=== PATIENT | male | born 1930 | race Hispanic/Latino ===

== ENCOUNTER 2019-03-24 05:09 | Inpatient (IN) | payer MEDICARE, MEDICAID ==
[2019-03-24] MEDS ORDERED: Piperacillin/Tazobactam 3.375 GM VIAL ONE (05:27)
[2019-03-24 06:04] LABS: Bacteria/HPF 4+ HPF (None Seen); Bilirubin Negative (Negative); Blood, Urine 2+ (Negative); Clarity Extra Turbid (Clear); Glucose, Urine (Dipstick) Normal (Negative); Leukocyte 500 Leu/uL (Negative); Nitrite Negative (Negative); Protein, Urine (Dipstick) Greater than 600 mg/dL (Neg-Trace); RBC/HPF Greater than 50 HPF (0-3); Squamous Epithelial None Seen HPF (0-3); Urobilinogen Normal mg/dL (Less than 2); WBC/HPF 21-50 HPF (0-3)
[2019-03-24 06:16] LABS: Calcium Oxalate Crystals 2+ HPF (None Seen); Triple Phosphate Crystal 4+ HPF (None Seen)
[2019-03-24 06:18] LABS: Hemoglobin 9.7 g/dL (14.0-18.0); Mean Corpuscular Hemoglobin 25.4 pg (27.0-31.0); Mean Platelet Volume 9.1 fL (7.4-10.4); Platelet Count 211 thou/uL (130-400); RBC Distribution Width 17.3 % (11.5-14.5); Red Blood Cell (RBC) Count 3.82 mill/uL (4.70-6.10); White Blood Cell (WBC) Count 8.8 thou/uL (4.8-10.8)
[2019-03-24 06:24] LABS: ALT (SGPT) 9 U/L (8-55); AST (SGOT) 10 U/L (5-34); Alkaline Phosphatase 100 U/L (40-150); Anion Gap 18 mmol/L (10-20); BUN (Urea Nitrogen) 49 mg/dL (8.4-25.7); Bilirubin, Total 0.9 mg/dL (0.2-1.2); Calc. Creatinine Clearance 0 mL/min (70-130); Calcium 8.9 mg/dL (7.8-10.44); Carbon Dioxide 19 mmol/L (23-31); Chloride 106 mmol/L (98-107); Estimated GFR-MDRD 64; Globulin 3.7 g/dL (2.4-3.5); Glucose 140 mg/dL (83-110); Protein, Total 6.7 g/dL (5.8-8.1); Sodium 139 mmol/L (136-145)
[2019-03-24] MEDS ORDERED: Ketamine 50 MG/ML (10ML VIAL) ONE (06:25)
[2019-03-24] MEDS ORDERED: Rocuronium Bromide 10 MG/ML (10ML VIAL) ONE (06:26)
[2019-03-24 06:27] LABS: Band 48 % (5-11); Lymphocytes 7 % (21-51); MDiff Complete? YES; Metamyelocyte 1 % (0-0); Neutrophil 44 % (42-75); Platelet Morphology Comment Appears Adequate; Reflex for Review?? NO
[2019-03-24] MEDS ORDERED: fentaNYL Citrate/PF 2,000 MCG in Sodium Chloride 0.9% 60 ML IV SCH (06:53)
[2019-03-24 07:12] LABS: Analyzer IN Cardio ER; Base Excess (BEa) -9.3 mEq/L (-2.0 to +3.0); CO2 Tension 46.2 mmHg (35.0-45.0); Calcium, Ionized 1.08 mmol/L (1.12-1.30); Carboxyhemoglobin (COHb) 0.8 gm% (0.0-3.0); Hemoglobin (Hb) 8.3 g/dL (14.0-18.0); O2 Tension (PaO2) 102.4 mmHg (> 60.0); Potassium - ABG Lab 3.23 mmol/L (3.70-5.30)
[2019-03-24 07:13] LABS: Puncture Site LBA; pH, Arterial 7.21 (7.35-7.45)
--- NOTE | 2019-03-24 07:34 | RAD ---
Frontal radiograph chest: 03/24/2019 6:37 AM COMPARISON: 03/24/2019 5:07 AM HISTORY: Respiratory distress FINDINGS: There is a new endotracheal tube projecting over the tracheal air column, terminating at th e level of the clavicular heads. Nasogastric tube present, distal tip overlying the midline mediastinum. This nasogastric tube should be advanced. There is rounded density in the right suprahilar region which could signify vascular prominence or ma ss density. This is not well assessed on portable chest radiograph. The lungs are hyperinflated with increased linear interstitial density noted. There is linear density in the right lung apex which could signify scar. IMPRESSION: Lines and tubes as detailed above. Recommend advancing the nasogastric tube. Interstitial prominence and pulmonary hyperinflation may signify underlying COPD. Increased density in the right hilar region may be vascular in nature or may represent underlying mas s. PA and lateral imaging of the chest is advised when the patient is able. CODE T
[2019-03-24] MEDS ORDERED: Ondansetron PF 4 MG/2 ML Vial IVP PRN (08:07)
[2019-03-24] MEDS ORDERED: Sodium Chloride 0.9% 1,000 ML IV SCH (08:07)
[2019-03-24] MEDS ORDERED: Acetaminophen 650 MG Suppository PR PRN (08:07)
--- NOTE | 2019-03-24 08:43 | CT ---
CT BRAIN WITHOUT CONTRAST: Date: 03/24/19 INDICATION: Altered mental status and confusion. COMPARISON: None. FINDINGS: There is moderate generalized cerebral and cerebellar atrophy. There is prominence of the extra-axial space overlying the cerebral convexity, likely related to chronic subdural hygromas. There are bur h oles present within the vertex of the parietal and frontal skull bilaterally. More subacute chronic s ubdural hematoma overlies the right parietal convexity measuring 5.3 mm. The septum pellucidum and th ird ventricle are midline. Basilar cisterns are patent. There is moderate chronic small vessel white matter ischemic change. There are bilateral mastoid effusions. Paranasal sinuses are clear. IMPRESSION: 1. Bilateral chronic appearing subdural hygromas overlying the cerebral convexities with a more suba cute subdural component overlying the right parietal convexity. No midline shift is grossly evident. 2. Prominent generalized cerebral and cerebellar atrophy. 3. Moderate chronic small vessel white matter ischemic change. 4. Bilateral mastoid effusions. Findings called to Dr. Price at 0613 hours on 03/24/19. CODE CR. POS: MANUEL
[2019-03-24] MEDS ORDERED: Enoxaparin Sodium 40 MG/0.4 ML SYRINGE SC SCH (09:00)
[2019-03-24] MEDS: Famotidine/PF 20 mg/2ml Vial SLOW IVP SCH ×2 (09:41→19:57)
[2019-03-24] MEDS: Cefepime 2 GM in Sodium Chloride 0.9% 100 ML IVPB SCH ×2 (09:48→19:57)
--- NOTE | 2019-03-24 10:01 | RAD ---
PORTABLE CHEST 1 VIEW: Date: 03/24/19 Time: 0507 hours HISTORY: Respiratory distress. FINDINGS/IMPRESSION: The heart size is normal. The aorta is tortuous. A rounded density seen in the right hilar/suprahilar region. . There are changes of COPD. No lobar consolidation, pneumothorax, or large effusions are se en. The finding in the right hilar/suprahilar region should be evaluated with CT scan. POS: OFF
--- NOTE | 2019-03-24 10:43 | HP ---
CHIEF COMPLAINT: Altered mental status. HISTORY OF PRESENT ILLNESS: The patient is an 89-year-old male, who was having some altered mental status in the last couple of days as per family, and his respirations were increased and he had some signs of gurgling in his throat. EMS was called and he was brought to the emergency room for further evaluation. He was found to be septic. Apparently, he had his chronic indwelling catheter exchanged on last , which is [address] Aguirre at [place] and [place], his urologist. He did not have any fever at home. There was no any chest pain. No palpitations. No chills. Apparently, he fell a couple of years ago and had some brain injury with some bleeding in his brain, was hospitalized, and after that he became less ambulatory and he stays in bed most of the time and his oral intake significantly decreased to the point that he is losing weight. He lost several pounds on the last time he was seen by his primary care physician, Dr. Martinez. The patient's surrogate decision maker is his daughter, Ms. Arellano. PAST MEDICAL HISTORY: Positive for; 1. Collapsed lung. 2. Intracranial bleeding. PAST SURGICAL HISTORY: Evacuation of hematoma from the brain, status post fall two years ago. ALLERGIES: PENICILLIN. FAMILY HISTORY: Father of heart attack. Mother, the patient's daughter does not know much about them. SOCIAL HISTORY: He used to drink a lot, he quit two years ago after he took a fall and had brain injury and bleeding. He never smoked. He does not use any illicit drugs. MEDICATIONS: None. REVIEW OF SYSTEMS: All systems were reviewed with the daughter and the only symptoms which were mentioned in the HPI are positive, rest of them are negative. PHYSICAL EXAMINATION: GENERAL: He is orally intubated and sedated. VITAL SIGNS: Blood pressure is 148/83, pulse is 115, respiratory rate 27, O2 saturation is 96. He is on FiO2 of 40%, pressure support 10, PEEP 5.0 and frequency is 16 with tidal volume of 500. HEENT: His head is atraumatic and normocephalic. Pupils are small. Sclerae are nonicteric. Conjunctivae are pinkish. Oral mucosa is not examined. He is orally intubated. LUNGS: Clear. HEART: S1 and S2, somewhat tachycardic. No S3. No S4. ABDOMEN: Soft, nondistended. There is a big non-incarcerated hernia in the right groin, which is chronic. Bowel sounds are sluggish. EXTREMITIES: No clubbing, cyanosis, or edema. He has severe malnourishment and muscle wasting visible on his extremities and his trunk. NEUROLOGIC: Examination was postponed since he is sedated at this point. LABORATORY DATA: Labs showed white count of 8.8, hemoglobin 9.7, hematocrit 31.3, platelet count is 211. ABGs showed pH of 7.21, pCO2 of 46.2, O2 of 102.4, base excess -9.3. Sodium of 139, potassium 4.0, chloride 106, CO2 of 19, creatinine 0.08, BUN 49. Lactic acid 3.4, the first one was 4.8. Troponin-I 0.087. Albumin 3.0, globulin 3.7. Urine; turbid clarity, protein greater than 600, 2+ blood, 500 of leukocyte esterases wbc's 21 to 50, 2+ calcium oxalate, 4+ triple phosphate crystals, and 4+ bacteria. Chest x-ray personally reviewed by me, showed increased densities in the right hilar region. Lungs are hyperinflated with increased linear interstitial densities. The gastric tube was found to be in the midline, mediastinum and we will need to advance that further down. Brain CT, personally reviewed by me. I do not see any significant changes intracranially. EKG personally reviewed by me, ventricular rate of 115 beats per minute, sinus tachycardia. No ischemic changes. IMPRESSION: 1. Respiratory failure, rule out pneumonia, rule out secondary to sepsis related to urinary tract infection. The patient had catheter replaced or exchanged last 3 days ago, that is most likely diagnosis, although he did not have much fever with this illness. 2. Sepsis with elevated lactate and left shift on his CBC. The patient was given vancomycin and Zosyn. We will switch him to vanc and cefepime since he has some penicillin allergy. 3. Metabolic acidosis secondary to #1 and #2. 4. Normocytic anemia. 5. Old age. 6. Chemical code only. The case was discussed with daughter and she wishes him to be chemical code only. No compressions, no electrical shocks. PLAN: Admission to intensive care unit. Condition is guarded. IV fluids, he received 2700 mL so far. In the emergency room, his blood pressure is good. He is still tachycardic. We will continue normal saline at 125 mL/hour. We will continue ventilator support. We will have transport coordinator on the case to manage the respiratory function and ventilator support. We will continue his vancomycin. We will start cefepime. Blood and urine cultures are done. We will have Tylenol p.r.n. for possible fever in the form of suppositories. We will do PUD prophylaxis with IV Pepcid, and he will have DVT prophylaxis with Lovenox. Job ID: [id number]
[2019-03-24 11:30] LABS: Lactic Acid 4.3 mmol/L (0.5-2.2)
[2019-03-24] MEDS ORDERED: Calcium Gluc 4.6 MEQ/10 ML (100 MG/ML) SLOW IVP ONE (11:48)
[2019-03-24] MEDS ORDERED: Lactated Ringer's 1,000 ML IV SCH ×2 (12:00→16:00)
[2019-03-24] MEDS ORDERED: Propofol 1,000 MG/100 ML VIAL IV ONE (12:01)
[2019-03-24] MEDS: Sodium Chloride 0.9% 1,000 ML IV SCH (12:22)
--- NOTE | 2019-03-24 13:59 | CON ---
DATE OF CONSULTATION: 03/24/2019 SERVICE: Pulmonary Medicine. REASON FOR CONSULTATION: ICU patient. HISTORY OF PRESENT ILLNESS: The patient is an 89-year-old male with past medical history significant for increasing altered mentation over a period of 2 days. He also had decreased urine output. Either way, he was brought to the emergency department by his family. He had some grunting and gurgling in the throat. He was intubated and tucked into the ICU. Empiric antibiotics were given including Zosyn. He tolerated this antibiotic quite well despite the fact that he has a penicillin allergy. He cannot provide me with any additional elements of the history at this point. He is completely encephalopathic. He is chronically ill-appearing. There were no reports of nausea, vomiting, diarrhea, or shortness of breath that precipitated these events. PAST MEDICAL HISTORY: 1. History of subdural hematoma, status post evacuation. 2. Pneumothorax. 3. 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 PAST SURGICAL HISTORY: Craniotomy with the evacuation of hematoma. ALLERGIES: PENICILLIN. MEDICATIONS: List of his inpatient medications was reviewed. No specific updates were made at this time. FAMILY HISTORY: Noncontributory. SOCIAL HISTORY: He quit drinking alcohol roughly 2 years ago after his brain injury. Since then, he has had fairly significant debility. He has a hard time getting around without significant assistance. He is a lifelong nonsmoker and has no illicit drug use. REVIEW OF SYSTEMS: Cannot be obtained as the patient is currently intubated. PHYSICAL EXAMINATION: VITAL SIGNS: Pulse 104, blood pressure 102/70, respirations 25, saturation 98% on 41% FiO2. GENERAL: The patient is intubated. He is not on any sedation, but remains encephalopathic. HEENT: Normocephalic and atraumatic. Sclerae white. Conjunctivae pink. Oral mucosa is moist without lesions. He has temporal wasting. HEART: Tachycardic. Regular. ABDOMEN: Soft, nontender, and nondistended. Bowel sounds are positive. MUSCULOSKELETAL: No cyanosis or clubbing. Diffuse tenting is present. GENITOURINARY: Jerez catheter is in place. Hypospadias is likely present. LABORATORY DATA: WBC 8.8, hemoglobin 9.7, platelets 211,000. He has a band count of 48%. PH of 7.21, pCO2 of 46, pO2 of 102. Lactate is hovering at 4.3. Creatinine 1.08, which is at baseline. Basic metabolic profile and liver function studies are otherwise unremarkable. Troponin 0.08. Urinalysis is positive for hematuria and pyuria. There were significant bacteria, crystals, as well as calcium oxalate. IMAGING STUDIES: CT of the brain demonstrates no evidence of acute cardiopulmonary abnormality. Mastoid effusions are present. Prominent generalized atrophy of the cerebral and cerebellar brain. There are bilateral subdurals, which are chronic-appearing without midline shift. Chest x-ray demonstrates right suprahilar mass and/or infiltrate. There is an endotracheal tube in good position, enteric catheter that courses midline, but it does not go below the level of the diaphragm. No obvious consolidating changes are otherwise appreciated. ASSESSMENT: 1. Metabolic encephalopathy. 2. Septic shock. 3. Urinary tract infection, complicated with indwelling Jerez catheter. 4. Respiratory failure secondary to not being able to protect his airway. DISCUSSION AND PLAN: The patient will remain in the ICU on mechanical ventilation. Empiric antibiotics directed at organisms will be continued. I will try to keep his MAPS above 65 to promote good perfusion of the kidneys. Pulmonary/Critical Care will follow closely. The patient will remain in the ICU for the time being. Multiple ventilator adjustments have been made in order to increase his minute volume. I have increased his pressure support as well as his rate ever so slightly. CRITICAL CARE TIME: 30 minutes. Job ID: [id number] MTDD
--- NOTE | 2019-03-24 14:04 | CT ---
CT of abdomen and pelvis: 03/24/2019 COMPARISON: None HISTORY: Urethral injury TECHNIQUE: Axial CT imaging at 5 mm intervals from lung bases through pubic symphysis without contras t. Coronal reformatted imaging obtained. FINDINGS: Lack of contrast media limits assessment of the viscera, bowel, vascular structures, and fo r lymphadenopathy. Trace bilateral pleural effusions are noted. There is patchy increased pulmonary parenchymal opacity within bilateral lower lobes and within the lingula, which suggests possible infectious pneumonitis/aspiration within both lower lobes. No free intraperitoneal air. There is a hypodense lesion within the left lobe of the liver measuring 1 cm, too small to characteri ze. The gallbladder is grossly unremarkable. The spleen and adrenal glands are grossly unremarkable as is the pancreas. There is mild bilateral hydronephrosis and mild/moderate bilateral hydroureter. Urinary bladder appea rs thick-walled, a nonspecific finding. There is multifocal calcific density along the posterior wall of the urinary bladder which suggest mural calcification. A segment of catheter tubing within th e urinary bladder cannot be excluded as there is a curvilinear hyperdensity on axial image 61 along the posterior aspect of the urinary bladder to the left of midline measuring 2.3 cm in length. There is a Jerez catheter present with a balloon inflated within the region of the bulbous/penile ure thra, significantly inferior to the pubic symphysis. Scrotal wall edema is noted. Nonspecific small volume fluid is noted within the left paracolic gutter and within the pelvis adjacent to the thick-wa lled urinary bladder. There is a large bowel containing inguinal hernia on the right which appears to primarily contain lar ge bowel. This hernia measures at least 10 cm in transverse dimension, 6 cm in AP dimension, and 11 cm in craniocaudal dimension. The rectum is expanded and filled with stool suggesting fecal impaction. There is extensive atherosclerotic calcification of the abdominal aorta and its branches. The bones are markedly demineralized. There are age indeterminant superior endplate fracture deformit ies involving T12, L1, and L2 vertebral bodies. There is minimal osseous retropulsion associated with the age-indeterminate superior endplate fracture at the L1 level. IMPRESSION: Jerez catheter is inflated in the region of the bulbous/penile urethra. There is urinary bladder wall thickening and there is fluid adjacent to the urinary bladder. This may be on the basis of inflammatory/infectious or neoplastic change. Multifocal calcific density is seen along the posterior wall of the urinary bladder and an internal segment of catheter tubing is a possibility. Pulmonary parenchymal opacity in bilateral lung bases as detailed above. Bilateral hydronephrosis/hydroureter as detailed above. Large right inguinal hernia. Extensive atherosclerotic disease. Age indeterminant spinal fractures as detailed above. Nonspecific free fluid within the pelvis and a left paracolic gutter.
[2019-03-24] MEDS: Vancomycin HCl 1 GM in Premix Bag 1 BAG IVPB SCH (18:09)
[2019-03-24] MEDS ORDERED: Norepinephrine 8 MG in Dextrose 5% in Water 242 ML IVPB PRN (18:39)
[2019-03-24] MEDS ORDERED: Morphine 2 MG/ML SYRINGE SLOW IVP PRN (21:06)
[2019-03-24] MEDS ORDERED: Lorazepam 2 MG/ML VIAL SLOW IVP PRN (21:06)
[2019-03-24] MEDS ORDERED: DISCONTINUE PREVIOUS NARCOTIC PAIN MEDICATIONS AND BENZODIAZEPINES FS SCH (21:06)
[2019-03-24] MEDS ORDERED: Fentanyl BOLUS 250 ML IVPB PRN (21:06)
--- NOTE | 2019-03-24 23:25 | CON ---
DATE OF CONSULTATION: 03/24/2019 REASON FOR CONSULTATION: Urosepsis. HISTORY OF PRESENT ILLNESS: Mr. Xavier is an 88-year-old male who is a patient of Dr. Ascencion Aguirre with Urology at [facility]. 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 This is periodically changed by his Home Health, as well as Dr. Aguirre in the office. The patient has had increasing altered mental status over the past couple of days, respirations were increased, and EMS was therefore called and brought him to the emergency department. The patient was found to be septic. He did not have any fever at home. The patient ended up requiring intubation secondary to his altered mental status and labored breathing. Urology was consulted for possible urosepsis. The patient had had minimal urine output. Verbally ordered a CT of the abdomen and pelvis, and this demonstrated moderate amount of urine in the bladder, but the Jerez was inflated in the bulbar urethra. Attempts by Nursing to deflate the balloon, advance it and reinflate were unsuccessful, and there was no additional urine output. At the bedside, I spoke to the patient's daughter who is his surrogate decision maker. She stated that three days ago, his Jerez catheter was exchanged by the Home Health nurse. Prior to this, the urine was draining clear. However, the urine had been completely bloody since she exchanged it. His urine output has been minimal over the past three days since the Jerez catheter was exchanged. Upon review of the medical record, the last time he was seen by Dr. Aguirre was March 06 and the Jerez was successfully changed at that time in the office. REVIEW OF SYSTEMS: Unable to obtain secondary to patient's condition. PAST MEDICAL HISTORY: 1. Collapsed lung. 2. Intracranial bleeding. 3. Chronic urinary retention with indwelling Jerez. PAST SURGICAL HISTORY: Evacuation of hematoma from the brain. ALLERGIES: PENICILLIN. FAMILY HISTORY: Noncontributory. SOCIAL HISTORY: No tobacco. He currently lives at home. Has a history of alcoholism, however, has not drank in two years. HOME MEDICATIONS: 1. Flomax. 2. Avodart. Inpatient medications have been reviewed. ALLERGIES: PENICILLIN. PHYSICAL EXAMINATION: VITAL SIGNS: Temperature 98.4, heart rate 119, blood pressure 104/77, oxygen saturation 100% on 0.4 FiO2. GENERAL: Intubated and sedated. No apparent distress. CARDIOVASCULAR: Tachycardic but regular. PULMONARY: Breathing unlabored. ABDOMEN: Soft, nontender/nondistended. No masses or organomegaly. No suprapubic tenderness to palpation. No CVA tenderness. GENITOURINARY: Penis with ventral urethral erosion with a Jerez catheter and no significant urine output, large, not reducible right inguinal hernia. EXTREMITIES: Warm and well perfused. NEUROLOGIC: Sedated. LABORATORY DATA: White blood cell count 8.8, hemoglobin 9.7, hematocrit 31.3, and platelets 211. Sodium 139, potassium 4.0, chloride 106, bicarb 19, BUN 49, creatinine 1.08. Urine, 2+ blood, greater than 50 red blood cells per high-power field, 50 white blood cells per high-power field, 4+ bacteria. RADIOLOGY DATA: CT abdomen and pelvis report within the record. These films were reviewed and I agree with the radiologist's interpretation. There is mild bilateral hydronephrosis. There is moderate amount of urine within the bladder. The Jerez catheter was inflated in the bulbar urethra. There was also multifocal calcific density across the posterior wall of the urinary bladder, unclear whether or not this is a foreign body such as a segment of catheter tubing. ASSESSMENT: An 88-year-old male with sepsis secondary to urinary tract infection and chronic urinary retention with indwelling Jerez catheter and Jerez currently obstructing the urethra. PLAN: The patient was evaluated at the bedside. The existing Jerez catheter was removed. Attempts at replacing this with an 18-Pashto coude catheter were unsuccessful. Under sterile conditions, we then subsequently attempted placing a Glidewire within the urethra, however, we were unable to get this to advance. At this point, we elected to perform flexible cystoscopy at the bedside. Under sterile conditions, the flexible cystoscope was introduced into the patient's urethra. There was trauma to the proximal bulbar urethra, where the Jerez balloon had been inflated. We were able to advance the scope beyond the prostatic urethra into the bladder. There was a great deal of debris within the bladder. Visualization was difficult. We were able to curl a Glidewire within the bladder and removed the cystoscope. A 16-Pashto Councill catheter was placed over the wire and 20 mL of sterile water was placed in the balloon. This was mainly irrigated, resulting in cloudy urine. This was placed to gravity drainage and was draining. Continue supportive care and broad-spectrum antibiotics. The Jerez catheter should not be removed without approval by Urology. The next Jerez catheter change should likely be performed by Urology as well rather than his Home Health nurse. Job ID: [id number]
[2019-03-25] MEDS: Sodium Chloride 0.9% 1,000 ML IV SCH ×2 (00:08→11:40)
[2019-03-25] MEDS: Vancomycin HCl 1 GM in Premix Bag 1 BAG IVPB SCH (05:39)
[2019-03-25 05:47] LABS: Anion Gap 16 mmol/L (10-20); BUN (Urea Nitrogen) 56 mg/dL (8.4-25.7); Calc. Creatinine Clearance 32 mL/min (70-130); Calcium 7.6 mg/dL (7.8-10.44); Carbon Dioxide 13 mmol/L (23-31); Chloride 113 mmol/L (98-107); Estimated GFR-MDRD 77; Potassium 3.9 mmol/L (3.5-5.1); Sodium 138 mmol/L (136-145)
[2019-03-25 05:52] LABS: Glucose 48 mg/dL (83-110)
[2019-03-25] MEDS ORDERED: Dextrose 50% Abboject 50 ML SYRINGE ONE (05:54)
[2019-03-25] MEDS ORDERED: Dextrose 50% Abboject 50 ML SYRINGE IVP PRN (06:12)
[2019-03-25] MEDS ORDERED: Dextrose 5% in Water 1,000 ML IV PRN (06:12)
[2019-03-25 08:19] LABS: Hemoglobin 8.4 g/dL (14.0-18.0); Mean Corpuscular HGB CONC 28.9 g/dL (32.0-36.0); Mean Corpuscular Hemoglobin 23.5 pg (27.0-31.0); Mean Corpuscular Volume 81.3 fL (78.0-98.0); Mean Platelet Volume 13.5 fL (7.4-10.4); Platelet Count 41 thou/uL (130-400); RBC Distribution Width 17.3 % (11.5-14.5); Red Blood Cell (RBC) Count 3.56 mill/uL (4.70-6.10); White Blood Cell (WBC) Count 15.5 thou/uL (4.8-10.8)
[2019-03-25 08:28] LABS: Band 45 % (5-11); Burr Cells MARKED = >16 cells (100X) (0-1/hpf); Dohle Bodies SLIGHT; Lymphocytes 7 % (21-51); MDiff Complete? YES; Metamyelocyte 5 % (0-0); Monocytes 5 % (0-10); Neutrophil 38 % (42-75); Nucleated RBC 1 % (0); Platelet Morphology Comment Appears Decreased; Polychromasia SLIGHT = 2-3 cells (100X) (0-2/hpf); Reflex for Review?? NO; Schistocytes SLIGHT = 2-5 cells (100X) (0-1/hpf); Vacuoles MODERATE
[2019-03-25] MEDS ORDERED: Enoxaparin Sodium 30 MG/0.3 ML SYRINGE SC SCH (09:00)
--- NOTE | 2019-03-25 09:16 | RAD ---
PORTABLE CHEST: HISTORY: Intubation. COMPARISON: 03/24/2019 study. FINDINGS: NG tube has been removed. Endotracheal tube is in satisfactory position. The parenchymal lung marquez es show some slight increase in the parahilar and lower lobe markings as compared to the prior examin ation. IMPRESSION: 1. Endotracheal tube in satisfactory position. 2. Slight increase to the parahilar and lower lobe parenchymal markings. POS: OFF
--- NOTE | 2019-03-25 09:56 | PRG ---
DATE OF SERVICE: 03/25/2019 SERVICE: Pulmonary Medicine. INTERVAL HISTORY: The patient is doing poorly from mentation standpoint. He is not following any commands. He cannot provide any additional elements of the history and remains fairly significantly encephalopathic. Otherwise, there has been no interval change to his condition. He had a run of supraventricular tachycardia last night. This was short-lived. PHYSICAL EXAMINATION: VITAL SIGNS: Afebrile. Pulse 100, blood pressure 97/52, respirations 21, saturation 100% on 27% FiO2 and a PEEP of 5. HEENT: Normocephalic and atraumatic. Sclerae white. Conjunctivae pink. Oral mucosa is moist without lesions. LUNGS: Decent air entry. Rhonchi are present. There is a slightly prolonged expiratory phase, but no wheezing or rhonchi appreciated. HEART: Normal rate, regular. ABDOMEN: Firm. There is guarding. No rebound. Bowel sounds are hypoactive. : Jerez catheter in place. NEUROLOGIC: Grossly nonfocal. LABORATORY DATA: WBC 15.5, hemoglobin 8.4, platelets 41,000 and downtrending. Band count is 45%. Chloride 113. Anion gap is downtrending to 16, bicarb 13. Glucose this morning was 48. IMAGING STUDIES: CT of the abdomen and pelvis demonstrates Jerez catheter is inflated in the region of the penile urethra. Bladder wall thickening is present. Fluid adjacent to the bladder. Bilateral lung bases have opacities in them. There is bilateral hydronephrosis/hydroureter. Large right inguinal hernia. Nonspecific free fluid in the pelvis in the left pericolic gutter. ASSESSMENT: 1. Metabolic encephalopathy. 2. Septic shock. 3. Urinary tract infection, complicated with indwelling Jerez catheter. 4. Thrombocytopenia. 5. Severe protein-calorie malnutrition. 6. Hypoglycemia. 7. Supraventricular tachycardia, short lived. DISCUSSION AND PLAN: We will continue our empiric antibiotics directed at pathogens. Pulmonary/Critical Care will continue to follow along while the patient remains in this location. We will continue to gently hydrate the patient. His urine output is starting to fern picker a little bit suggesting is end-organ damage. We will initiate some tube feeds cautiously. I will change his fluids to D5 NS. Multiple adjustments have been made to the ventilator. I put him on pressure control ventilation. CRITICAL CARE TIME: 30 minutes. Job ID: [id number] [facility]
[2019-03-25] MEDS: Cefepime 2 GM in Sodium Chloride 0.9% 100 ML IVPB SCH ×2 (10:11→21:00)
[2019-03-25] MEDS: Dextrose 5 %-0.45 % NaCl 1,000 ML IV SCH ×2 (10:13→23:39)
--- NOTE | 2019-03-25 15:29 | PRG ---
DATE OF SERVICE: 03/25/2019 SUBJECTIVE: The patient is seen and examined at the bedside. He is sedated and intubated on the ventilator. OBJECTIVE: VITAL SIGNS: Blood pressure is 105/57, pulse is 108, respiratory rate is 23, and O2 saturation is 100%. HEENT: His pupils are very sluggish to light. LUNGS: Breath sounds diminished at both bases with few rales bilaterally at both bases. HEART: S1, S2. Tachycardic. No S3. No S4. ABDOMEN: Soft, nondistended. EXTREMITIES: No clubbing, cyanosis, or edema. Right groin shows big inguinal hernia. NEUROLOGICAL: Postponed since he is sedated at this time. LABORATORY DATA: Labs showed white count of 15.5, hemoglobin 8.4, hematocrit 28.9, platelet count is 41,000, and 45 bands. Sodium of 130, potassium 3.9, chloride 113, CO2 of 13, creatinine 0.93, BUN 56, glucose 48, lactic acid 4.3, and calcium 7.6. Microbiology: Presumptive Proteus mirabilis. Chest x-ray showed increased interstitial markings bilaterally in both lungs. IMPRESSION: 1. Severe sepsis with shock. 2. Respiratory failure. 3. Metabolic acidosis secondary to #1 and #2. 4. Normocytic anemia. 5. Old age. 6. Hypoglycemia, most likely related to severe sepsis. 7. Trauma secondary to Jerez catheter placement and inflation in bulbar urethra, status post cystoscopy and placement of proper Jerez catheter. 8. Malnutrition, severe. PLAN: The patient was switched to D5 IV fluids since he is hypoglycemic. We will stop his vancomycin since he is growing Proteus, most likely gram-negative. Cefepime should cover that. We will continue him on ventilation. We will get echocardiogram transthoracic. We will get a BNP and procalcitonin at this time. Job ID: [id number]
[2019-03-25 17:49] LABS: Vancomycin, Trough 31.7 ug/mL
[2019-03-25] MEDS: Famotidine/PF 20 mg/2ml Vial SLOW IVP SCH (21:00)
[2019-03-26 05:13] LABS: Hemoglobin 7.8 g/dL (14.0-18.0); Mean Corpuscular HGB CONC 28.9 g/dL (32.0-36.0); Mean Corpuscular Hemoglobin 22.9 pg (27.0-31.0); Mean Corpuscular Volume 79.3 fL (78.0-98.0); Platelet Count 6 thou/uL (130-400); RBC Distribution Width 17.4 % (11.5-14.5); Red Blood Cell (RBC) Count 3.39 mill/uL (4.70-6.10); White Blood Cell (WBC) Count 13.6 thou/uL (4.8-10.8)
[2019-03-26 05:23] LABS: Anion Gap 15 mmol/L (10-20); BUN (Urea Nitrogen) 57 mg/dL (8.4-25.7); Calc. Creatinine Clearance 32 mL/min (70-130); Calcium 7.5 mg/dL (7.8-10.44); Carbon Dioxide 12 mmol/L (23-31); Chloride 114 mmol/L (98-107); Estimated GFR-MDRD 75; Glucose 167 mg/dL (83-110); Potassium 3.4 mmol/L (3.5-5.1); Sodium 138 mmol/L (136-145)
[2019-03-26 05:34] LABS: Band 33 % (5-11); Burr Cells MODERATE= 6-15 cells (100X) (0-1/hpf); Lymphocytes 3 % (21-51); MDiff Complete? YES; Monocytes 3 % (0-10); Neutrophil 61 % (42-75); Platelet Morphology Comment Appears Decreased
[2019-03-26 05:45] LABS: Mean Platelet Volume 20.6 fL (7.4-10.4)
[2019-03-26 06:23] LABS: Hemoglobin 7.6 g/dL (14.0-18.0); Platelet Count 5 thou/uL (130-400)
[2019-03-26] MEDS: Cefepime 2 GM in Sodium Chloride 0.9% 100 ML IVPB SCH ×2 (08:30→21:01)
[2019-03-26 09:23] LABS: Fibrinogen 499 mg/dL (253-463); INR-International Normal Ratio 1.2; Prothrombin Time 15.1 SEC (12.0-14.7)
[2019-03-26 09:24] LABS: PTT 45.3 SEC (22.9-36.1)
[2019-03-26 09:31] LABS: D-Dimer Test 18.41 *mcg/mL (0.27-0.43)
--- NOTE | 2019-03-26 10:35 | PRG ---
DATE OF SERVICE: 03/26/2019 SERVICE: Pulmonary Medicine. INTERVAL HISTORY: The patient is doing okay from a cardiovascular and respiratory standpoint. He is a little tachypneic. He is pulling good volumes. He requires a little bit of support on the ventilator, but not much. His oxygen requirements have improved. He is off the Levophed overnight. He is still not waking up to any significant degree. PHYSICAL EXAMINATION: VITAL SIGNS: Afebrile currently. Pulse 100, blood pressure 117/52, respirations 27, and saturation 100% on 27% FiO2 and a PEEP of 5. GENERAL: The patient is intubated. He is on minimal sedation, but completely obtunded. HEENT: Normocephalic and atraumatic. Sclerae are white. Conjunctivae are pink. Oral mucosa is moist without lesions. LUNGS: Decent air entry. Rhonchi are present. No prolonged expiratory phase or wheezing is appreciated. HEART: Normal rate, regular. ABDOMEN: Soft, nontender, and nondistended. Bowel sounds are positive. MUSCULOSKELETAL: No cyanosis or clubbing. There is no pitting in the bilateral lower extremities. NEUROLOGIC: Grossly nonfocal. LABORATORY DATA: WBC 13.6, hemoglobin 7.8, platelets 6000. A repeat confirmed this. INR 1.2. PH 7.21, pCO2 of 46, pO2 of 102. Creatinine 0.95. Chloride 114, potassium 3.4. Basic metabolic profile is otherwise unremarkable. His BNP was previously 2700. Vancomycin trough 31.7. Urine is growing Proteus mirabilis, which is pansensitive. IMAGING: Chest x-ray demonstrates endotracheal tube is in good position. Perihilar and lower lobe parenchymal markings are present. ASSESSMENT: 1. Septic shock. 2. Urinary tract infection, complicated secondary to Proteus mirabilis. 3. Disseminated intravascular coagulopathy, suspected. 4. Severe protein-calorie malnutrition. 5. Advanced debility and age. 6. Metabolic encephalopathy. DISCUSSION AND PLAN: I will send off a DIC panel. There is a possibility he could have TTP or HUS. That being said, at this point, the family is interested in transitioning over to comfort care only. They recognize that he has had a very significant decline over the last 6 months, and are requesting that we not pursue anything terribly aggressive over the next 24 to 48 hours. At this point, the plan is to terminally extubate tomorrow and transition over to comfort care only. As such, I will interrupt our echocardiogram, and ultrasound. I do believe that the patient could make some degree of recovery from this acute infectious process. That being said, the big picture still remains quite bleak. Even under the best of circumstances and he makes a full recovery from this event, he would still be a good candidate for hospice moving forward. As such, the family is interested in not pursuing aggressive measures. Critical care time: 30 minutes. Job ID: [id number] MTDD
[2019-03-26 10:39] LABS: FSP-Qualitative ABNORMAL (Normal); FSP-Semiquantitative >=40 & <80 mcg/mL (Less than 5)
[2019-03-26 11:08] LABS: Anisocytosis MODERATE=16-30 cells (100X) (0-5/hpf); Band 42 % (5-11); Burr Cells MARKED = >16 cells (100X) (0-1/hpf); Hemoglobin 7.9 g/dL (14.0-18.0); Hypochromia SLIGHT = 6-15 cells (100X) (0-5/hpf); Lymphocytes 4 % (21-51); MDiff Complete? YES; Mean Corpuscular HGB CONC 29.8 g/dL (32.0-36.0); Mean Corpuscular Hemoglobin 23.9 pg (27.0-31.0); Mean Corpuscular Volume 80.2 fL (78.0-98.0); Monocytes 1 % (0-10); Neutrophil 53 % (42-75); Platelet Count 6 thou/uL (130-400); Platelet Morphology Comment Appears Decreased; Polychromasia SLIGHT = 2-3 cells (100X) (0-2/hpf); RBC Distribution Width 17.6 % (11.5-14.5); Red Blood Cell (RBC) Count 3.28 mill/uL (4.70-6.10); Schistocytes SLIGHT = 2-5 cells (100X) (0-1/hpf)
[2019-03-26 11:22] LABS: Actual Bicarbonate (HCO3a) 14.2 mEq/L (22-28); Base Excess (BEa) -11.2 mEq/L (-2.0 to +3.0); CO2 Tension 29.8 mmHg (35.0-45.0); Calcium, Ionized 1.15 mmol/L (1.12-1.30); Potassium - ABG Lab 3.09 mmol/L (3.70-5.30)
[2019-03-26 11:23] LABS: O2 Tension (PaO2) 54.5 mmHg (> 60.0)
[2019-03-26 11:24] LABS: Puncture Site LR
[2019-03-26] MEDS: Dextrose 5 %-0.45 % NaCl 1,000 ML IV SCH (13:03)
[2019-03-26 13:10] LABS: Platelet Count 6 thou/uL (130-400)
--- NOTE | 2019-03-26 19:08 | PDOC.PN ---
- Subjective Encounter Start Date: 03/26/19 Encounter Start Time: 19:00 Pt seen for followup re: Proteus UTI. Pt intubated, unable to answer questions. Could not complete ROS. - Objective Resuscitation Status - Order Detail: 03/24/19 07:57 Resuscitation Status Routine Resuscitation Status: PRTL: Chem only Discussed with: per daughter ALEYDA Reviewed: Yes Vital Signs & Weight: Vital Signs (12 hours) Temp Pulse Resp BP Pulse Ox 03/26/19 18:15 103 H 102/55 L 03/26/19 18:00 31 H 03/26/19 16:00 99.2 F 32 H 03/26/19 14:48 111 H 104/54 L 03/26/19 14:00 32 H 03/26/19 12:00 99.2 F 31 H 03/26/19 10:49 95 113/65 03/26/19 10:00 30 H 03/26/19 08:00 98.2 F 28 H 100 03/26/19 07:06 101 H 112/54 L Weight Admit Weight 91 lb Weight 109 lb 2.061 oz Most Recent Monitor Data Heart Rate from ECG 108 NIBP 102/55 NIBP BP-Mean 70 Respiration from ECG 30 SpO2 100 I&O: 03/25/19 03/26/19 03/27/19 06:59 06:59 06:59 Intake Total 4294 2910.2 1214 Output Total 205 964 550 Balance 4089 1946.2 664 Result Diagrams: 03/26/19 09:02 03/26/19 04:34 Additional Labs: Accuchecks 03/26/19 03/26/19 06:05 00:02 POC Glucose 157 H 102 EKG Reviewed by me: Yes (Tele: NSR) Phys Exam - Physical Examination Intubated ETT Respiratory: clear to auscultation bilateral Cardiovascular: RRR Gastrointestinal: soft no spontaneous limb movements Deviation from normal: Unable to assess Dx/Plan (1) UTI (urinary tract infection) Status: Acute Comment: on cefepime (2) Respiratory failure Code(s): J96.90 - RESPIRATORY FAILURE, UNSP, UNSP W HYPOXIA OR HYPERCAPNIA Status: Acute Comment: likely for terminal extubation - Plan * . Review of Systems - Medications/Allergies Allergies/Adverse Reactions: Allergies Allergy/AdvReac Type Severity Reaction Status Date / Time Penicillins Allergy Verified 03/24/19 09:19 Medications: Current Medications Acetaminophen (Tylenol) 650 mg KS Q4H PRN PRN Reason: Headache/Fever/Mild Pain (1-3) Dextrose/Water (Dextrose 50%) 25 gm IVP PRN PRN PRN Reason: HYPOGLYCEMIA PROTOCOL Famotidine (Pepcid) 20 mg SLOW IVP 2100 SCOTTY Last Admin: 03/25/19 21:00 Dose: 20 mg Glucagon (Glucagon) 1 mg IM PRN PRN PRN Reason: HYPOGLYCEMIA PROTOCOL Fentanyl Citrate 2,000 mcg/ (Sodium Chloride) 100 mls @ 0 mls/hr IV INF SCOTTY; Protocol Stop: 04/23/19 06:53 Last Admin: 03/24/19 21:15 Dose: 100 mls Cefepime HCl 2 gm/ Sodium (Chloride) 100 mls @ 200 mls/hr IVPB Q12HR SCOTTY Last Admin: 03/26/19 08:30 Dose: 100 mls Norepinephrine Bitartrate 8 mg (/ Dextrose/Water) 250 mls @ 0 mls/hr IVPB INF PRN; Protocol PRN Reason: TO MAINTAIN MAP > 65 Last Admin: 03/24/19 21:37 Dose: 250 mls Fentanyl Citrate (Fentanyl Bolus) 250 mls @ 0 mls/hr IVPB PRN PRN PRN Reason: Breakthrough pain/agitation Stop: 04/23/19 21:06 Dextrose/Water (D5w) 1,000 mls @ 0 mls/hr IV INF PRN PRN Reason: HYPOGLYCEMIA PROTOCOL Dextrose/Sodium Chloride (D5 1/2 Ns) 1,000 mls @ 75 mls/hr IV .[id number] [facility] Last Admin: 03/26/19 13:03 Dose: Not Given Discontinue Previous Narcotic Pain Medications And Benzodiazepines 1 each FS .ONE [facility] Stop: 04/23/19 21:06 Ondansetron HCl (Zofran) 4 mg IVP Q6H PRN PRN Reason: Nausea/Vomiting Sodium Chloride (Flush - Normal Saline) 10 ml IVF PRN PRN PRN Reason: Saline Flush
[2019-03-26] MEDS: Famotidine/PF 20 mg/2ml Vial SLOW IVP SCH (21:01)
[2019-03-27] MEDS: Dextrose 5 %-0.45 % NaCl 1,000 ML IV SCH (02:48)
[2019-03-27 06:19] VITALS: BMI 17.4
[2019-03-27 07:52] VITALS: BP 72/41
[2019-03-27] MEDS ORDERED: Morphine 4 MG/ML VIAL ONE (08:26)
[2019-03-27] MEDS ORDERED: Lorazepam 2 MG/ML VIAL SLOW IVP PRN (08:40)
[2019-03-27] MEDS ORDERED: Morphine 2 MG/ML SYRINGE SLOW IVP PRN (08:40)
[2019-03-27 09:08] VITALS: TEMP 98.2
--- NOTE | 2019-03-27 09:43 | PRG ---
DATE OF SERVICE: 03/27/2019 SERVICE: Pulmonary Medicine. INTERVAL HISTORY: The patient was doing fine overnight. That being said, the patient's family has decided to terminally extubate the patient today. He is completely obtunded, cannot provide any additional elements to the history. Otherwise, there were no significant overnight events. PHYSICAL EXAMINATION: VITAL SIGNS: Afebrile. Pulse 90, blood pressure 65/37, respirations 29, saturation 82% on room air currently. HEENT: Normocephalic and atraumatic. Sclerae are white. Conjunctivae are pink. Oral mucosa is moist without lesions. LUNGS: Decent air entry. Rhonchi are present. HEART: Tachycardic. Regular. ABDOMEN: Soft, nontender, and nondistended. Bowel sounds are positive. MUSCULOSKELETAL: No cyanosis or clubbing. There is trace pitting in the bilateral lower extremities. NEUROLOGIC: He is completely obtunded. ASSESSMENT: 1. Septic shock. 2. Acute hypoxic respiratory failure. 3. Urinary tract infection, complicated by Proteus mirabilis. 4. Thrombocytopenia secondary to acute illness. 5. Severe protein-calorie malnutrition. 6. Advanced debility and age. 7. Metabolic encephalopathy. DISCUSSION AND PLAN: The patient has been compassionately extubated. All medications and interventions have been interrupted. We will give him morphine and Ativan if needed. Currently, he appears quite comfortable. If he continues to breathe well, we will transition him to the floor. When he leaves the ICU, he will have no further requirements for inpatient Pulmonary Critical Care opinion, and I will sign off. Please call with additional questions or concerns. Job ID: [id number]
--- NOTE | 2019-03-29 16:36 | EKG ---
Test Reason : Blood Pressure : / mmHG Vent. Rate : 119 BPM Atrial Rate : 119 BPM P-R Int : 000 ms QRS Dur : 088 ms QT Int : 318 ms P-R-T Axes : 101 063 068 degrees QTc Int : 447 ms Sinus tachycardia with 1st degree A-V block Otherwise normal ECG Confirmed by RAMOS JC D.O. ([id number]), editorial manager NEISHA PADRON ([id number]) on 03/29/2019 4:36:13 PM Referred By: Confirmed By:RAMOS JC D.O.
== END 2019-03-27 09:36 | disposition expired | DRG 698 ==
LOC: ERS 05:09 → EDBD 07:38 → CCU 07:38
PROVIDERS: ADMIT Internal Medicine; ATTEND Internal Medicine
PROC: 0BH17EZ Insertion of Endotracheal Airway into Trachea, Via Natural or Artificial Opening (ICD-10-PCS; principal; 2019-03-27)
PROC: 5A1935Z Respiratory Ventilation, Less than 24 Consecutive Hours (ICD-10-PCS; 2019-03-27)
DX: T83.511A Infection and inflammatory reaction due to indwelling urethral catheter, initial encounter (principal); A41.9 Sepsis, unspecified organism; R65.21 Severe sepsis with septic shock; E43 Unspecified severe protein-calorie malnutrition; G93.41 Metabolic encephalopathy; D65 Disseminated intravascular coagulation [defibrination syndrome]; J96.01 Acute respiratory failure with hypoxia; E87.2 Acidosis; I47.1 Supraventricular tachycardia; D64.9 Anemia, unspecified; N39.0 Urinary tract infection, site not specified; B96.4 Proteus (mirabilis) (morganii) as the cause of diseases classified elsewhere; Y84.6 Urinary catheterization as the cause of abnormal reaction of the patient, or of later complication, without mention of misadventure at the time of the procedure; E16.2 Hypoglycemia, unspecified; Z88.0 Allergy status to penicillin
CPT/HCPCS: 31500; 36415; 36416; 70450; 71045; 74176; 80048; 80053; 80202; 81003; 81015; 82553; 82805; 83605; 83880; 84145; 84484; 85025; 85049; 85060; 85300; 85362; 85379; 85384; 85610; 85730; 87040; 87077; 87086; 87186; 93005; 94002; 94003; 94760; 96365; 96368; J0692; J1650; J2270; J2543; J2704; J3010; J3370; J3490; J7070; S0028